=== PATIENT | male | born 1975 | race Caucasian/White ===

== ENCOUNTER 2023-09-03 06:26 | Day surgery (SDC) | payer OTHER ==
[~2023-09-03] VITALS: Ht 180.3 cm; Wt 73.2 kg
[~2023-09-03 06:26] MED LIST: ATOR-2 PO; CHOL200074 PO; DOCU100C33 PO; EMTR1TAB13 PO; METO-408 PO; OS500 PO
[2023-09-03] MEDS ORDERED: SODIUM CHLORIDE 0.9% 1,000 ML ONE (06:56)
[2023-09-03] MEDS ORDERED: SODIUM CHLORIDE 0.9% 1,000 ML IV ONE (08:00)
[2023-09-03] MEDS ORDERED: MIDAZOLAM HCL 2 MG/2 ML VIAL ONE (08:15)
[2023-09-03] MEDS ORDERED: FentaNYL CITRATE PF 100 MCG/2 ML VIAL ONE (08:16)
[2023-09-03 09:00] VITALS: PULSE 80; RESP 16; O2SAT 98
[2023-09-03] MEDS ORDERED: MethylPREDNISolone SOD SUCC 125 MG/2 ML VIAL ONE (09:09)
[2023-09-03] MEDS ORDERED: LIDOCAINE 2% 11 ML JELLY TP ONE (12:00)
[2023-09-03] MEDS ORDERED: BENZOCAINE 20% 50 MCG/SPRAY 57 GM TP ONE (12:00)
[2023-09-03] MEDS ORDERED: LIDOCAINE 4% 50 ML SOLUTION TP ONE (12:00)
== END 2023-09-03 10:30 | disposition home or self-care (01) ==
LOC: SURGERY 06:26
PROVIDERS: ATTEND Internal Medicine Critical Care Medicine
DX: J38.4 Edema of larynx (principal); B37.0 Candidal stomatitis; J44.9 Chronic obstructive pulmonary disease, unspecified; E78.00 Pure hypercholesterolemia, unspecified; Z98.890 Other specified postprocedural states; Z88.2 Allergy status to sulfonamides
CPT/HCPCS: 31623; 88112; 87206; 87101; 87220; 87070; 31624; 71045; 71250; 87015; J3010; J2250; Q9967; J7030; J2930; Z7610